=== PATIENT | female | born 1985 | race American Indian/Alaskan Native ===

== ENCOUNTER 2016-08-09 08:44 | Emergency (ER) | payer MEDICAID ==
[2016-08-09] MEDS ORDERED: BENADRYL PO ONE ×2 (12:19→12:59)
[2016-08-09] MEDS ORDERED: DELTASONE PO ONE (12:20)
[2016-08-09] MEDS ORDERED: FIORICET PO ONE (12:20)
--- NOTE | 2016-08-09 12:22 | Emergency Department Report ---
HPI - General Chief Complaint: Headache Time Seen by Provider: 08/09/16 12:00 - HPI HPI: Patient is a 30-year-old female who presents to ED complaining of migraine headaches 2 weeks. Patient states she has a history of migraine headache 8 years. Patient states she usually takes Topamax but ran out of insurance and has not been able to follow up with her primary care physician for refill. Patient describes headache as generalized, throbbing/tightening intermittent positive pain at its worst 8 out of 10 in intensity. Patient states last menstrual period was 2 weeks ago and positive for history of bilateral tubal ligation in December 2014. Patient denies fevers/chills/nausea/vomiting/blurry vision/chest pain/shortness of breath/visual disturbances or blurry vision. ED Past Medical Hx - Past Medical History Hx Hypertension: No Hx Heart Attack/AMI: No Hx Congestive Heart Failure: No Hx Diabetes: No Hx Deep Vein Thrombosis: No Hx Renal Disease: No Hx Sickle Cell Disease: No Hx Arthritis: Yes (lower back and hip) Hx Headaches / Migraines: Yes (migraines) Hx Seizures: No Hx Asthma: Yes (last used inhaler 1 year ago) Hx COPD: No Hx HIV: No - Surgical History Additional Surgical History: x 2 - Social History Smoking Status: Never Smoker - Medications Home Medications: Home Medications Medication Instructions Recorded Confirmed Last Taken Type Tizanidine HCl [Zanaflex] 2 mg PO HS 11/18/13 01/12/15 01/11/15 20:00 History HYDROcodone/APAP 10-325 [[place] 1 each PO Q6HR PRN #20 tablet 12/16/14 01/12/15 Unknown Rx 10/325] ALBUTEROL Inhaler [Proair] 2 puff IH QID PRN 01/09/15 01/09/15 Unknown History Gabapentin 100 mg PO HS 01/09/15 01/12/15 01/11/15 20:00 History Oxycodone HCl/Acetaminophen 1 each PO Q6HR PRN #30 tablet 01/12/15 Unknown Rx [Percocet 10-325 mg] Acetaminophen/Codeine [Tylenol #3] 1 tab PO Q6H PRN #12 tab 08/09/16 Unknown Rx Ibuprofen [Motrin] 800 mg PO Q8HR PRN #40 tablet 08/09/16 Unknown Rx Topiramate [Topamax TAB] 50 mg PO QHS #20 tablet 08/09/16 Unknown Rx ED Review of Systems ROS: Stated complaint: MIGRAINE/HEADACHE Other details as noted in HPI Constitutional: denies: chills, fever Eyes: denies: eye pain, eye discharge, vision change ENT: denies: ear pain, throat pain, dental pain, hearing loss Respiratory: denies: cough, orthopnea, shortness of breath, wheezing Cardiovascular: denies: chest pain, palpitations Endocrine: no symptoms reported Gastrointestinal: denies: abdominal pain, nausea, vomiting, diarrhea Genitourinary: denies: urgency, dysuria, discharge Musculoskeletal: denies: back pain, joint swelling, arthralgia Skin: denies: rash, lesions Neurological: headache. denies: weakness, numbness, paresthesias, confusion, abnormal gait, vertigo Psychiatric: denies: anxiety, depression, auditory hallucinations, visual hallucinations Hematological/Lymphatic: denies: easy bleeding, easy bruising Physical Exam - Physical Exam Vital Signs: Vital Signs 08/09/16 09:47 Temperature 98.1 F Pulse Rate 83 Respiratory 20 Rate Blood Pressure 137/90 O2 Sat by Pulse 100 Oximetry Physical Exam: GENERAL: Alert and oriented x3, no apparent distress, Normal Gait, atraumatic. HEAD: Head is normocephalic and a-traumatic. EYES: Extra ocular muscles are intact. Pupils are equal, round, and reactive to light and accommodation. EARS: symetrical, atraumatic, non tender, ear canal clear and moderate cerumen, tympanic membrance non inflamed. gross auditory nml bilaterally. MOUTH:Mouth is well hydrated and without lesions. Tonsils nonerythematous or swollen, Uvula midline, Tongue not elevated. Mucous membranes are moist. Posterior pharynx clear, no exudate or lesions. Patent airways. NECK: Supple. Non edematous, No carotid bruits. No lymphadenopathy or thyromegaly. LUNGS: Symetrical with respiration, No wheezing, no rales or crackles, CTAB. HEART: S1, S2 present, regular rate and rhythm without murmur, no rubs, no gallops. ABDOMEN: No organomegaly was noted,Positive bowel sounds, soft, and non- distended. . Nontender to palpation on all Quadrants, NO CVA tenderness. EXTREMITIES/MUSCULOSKELETAL: No cyanosis, clubbing, rash, lesions or edema. Full ROM bilaterally. UE/LE Pulses 2+ bilaterally. LE and UE 5+ strength bilaterally NEUROLOGIC: No focal Deficit, Cranial nerves II through XII are grossly intact. No loss of sensation, No facial droop, motor/sensory intact. PSYCHIATRIC: Mood is congruent with affect, denies suicidal or homicidal ideations. SKIN: Warm and dry, No lesions, No ulceration or induration present. ED Course Vital Signs 08/09/16 09:47 Temperature 98.1 F Pulse Rate 83 Respiratory 20 Rate Blood Pressure 137/90 O2 Sat by Pulse 100 Oximetry ED Medical Decision Making - Medical Decision Making 30-year-old female presents with migraine headaches Vital signs stable. Patient is in no acute distress. Patient to go home on refill of Topamax and follow-up with primary care physician as referred. Patient received 2 tablets of Fioricet ED but declined tablets because she states she is allergic to Fioricet. Discussed the patient to follow-up for further management and continue management of migraine headache. Visual acuity intact. Vision intact. Bilaterally. Patient to follow up as discussed and referred. Critical care attestation.: If time is entered above; I have spent that time in minutes in the direct care of this critically ill patient, excluding procedure time. ED Disposition Clinical Impression: Migraine headache without aura Disposition: DISCHARGED TO HOME OR SELFCARE Is pt being admited?: No Does the pt Need Aspirin: No Condition: Stable Instructions: Migraine Headache (ED) Prescriptions: Topiramate [Topamax TAB] 50 mg PO QHS #20 tablet Acetaminophen/Codeine [Tylenol #3] 1 tab PO Q6H PRN #12 tab PRN Reason: Pain Ibuprofen [Motrin] 800 mg PO Q8HR PRN #40 tablet PRN Reason: Pain Referrals: PRIMARY CARE, [Primary Care Provider] - 3-5 Days [facility] [Outside[facility] - 3-5 Days [facility] [Outside] - 3-5 Days [facility] [Outside] - 3-5 Days [facility] [Outside] - 3-5 Days Forms: Work/School Release Form(ED) Time of Disposition: 13:11
[2016-08-09] MEDS ORDERED: NORCO 5/325 PO ONE (13:28)
[2016-08-09 13:36] VITALS: BP 126/83
== END 2016-08-09 13:58 | disposition home or self-care (01) ==
LOC: ED 08:44
DX: G43.909 Migraine, unspecified, not intractable, without status migrainosus (principal); J45.909 Unspecified asthma, uncomplicated
CPT/HCPCS: 99282